=== PATIENT | female | born 1990 | race Caucasian/White ===

== ENCOUNTER 2021-04-16 00:19 | Emergency (ER) | payer SELFPAY ==
[~2021-04-16] VITALS: Ht 170.2 cm; Wt 95.7 kg
[2021-04-16 01:53] LABS: BASOPHILS ABSOLUTE AUTO 0.08 K/mm3 (0.00-0.23); BASOPHILS PERCENT AUTO 1 % (0-2); EOSINOPHILS ABSOLUTE AUTO 0.31 K/mm3 (0.00-0.68); EOSINOPHILS PERCENT AUTO 3 % (0-6); Hematocrit 28.1 % (33.0-51.0); Hemoglobin 8.3 g/dL (11.5-16.0); IMMATURE GRAN ABSOLUTE AUTO 0.05 K/mm3 (0.00-0.10); IMMATURE GRAN PERCENT AUTO 1 % (0-1); LYMPHOCYTES ABSOLUTE AUTO 2.17 K/mm3 (0.84-5.20); LYMPHOCYTES PERCENT AUTO 20 % (21-46); MONOCYTES ABSOLUTE AUTO 0.46 K/mm3 (0.16-1.47); MONOCYTES PERCENT AUTO 4 % (4-13); Mean Corpuscular HGB 23.1 pg (26.0-34.0); Mean Corpuscular HGB Conc 29.5 g/dL (31.5-36.5); Mean Corpuscular Volume 78 fL (80-100); NEUTROPHILS ABSOLUTE AUTO 7.79 K/mm3 (1.96-9.15); NEUTROPHILS PERCENT AUTO 72 % (41-73); RDW Coefficient Variation 16.4 % (11.7-14.2); RDW Standard Deviation 46.6 fL (35.1-46.3); Red Blood Cell Count 3.59 M/mm3 (3.80-5.20); White Blood Cell Count 10.86 K/mm3 (4.00-11.30)
[2021-04-16 01:55] LABS: Mean Platelet Volume 10.6 fL (9.1-12.4); Platelet Count 277 K/mm3 (150-400)
[2021-04-16 02:05] LABS: Magnesium, Blood 1.7 mg/dL (1.6-2.4)
[2021-04-16 02:23] LABS: Source, Urine Clean Catch
[2021-04-16 02:24] LABS: Alanine Aminotransfer (ALT/SGP 9 U/L (12-78); Albumin, Blood 2.5 g/dL (3.4-5.0); Albumin/Globulin Ratio 0.7 (0.8-1.8); Alk Phos 109 U/L (50-136); Anion Gap 9 mmol/L (6-16); Aspartate Aminotrans (AST/SGOT 13 U/L (12-37); Beta HCG, Quantitative, Serum 14509 mIU/mL (0-3); Bilirubin, Total 0.2 mg/dL (0.1-1.0); Blood Urea Nitrogen 7 mg/dL (8-24); Bun/Creatinine Ratio 16.4 (12.0-20.0); CO2, Blood 18 mmol/L (21-32); Calcium, Blood 7.5 mg/dL (8.5-10.1); Chloride, Blood 109 mmol/L (98-108); Creatinine, Blood 0.43 mg/dL (0.40-1.00); Globulin, Blood 3.8 g/dL (2.2-4.0); Glomerular Filtration Rate >60 (60-); Glucose, Blood 95 mg/dL (70-99); Potassium, Blood 2.9 mmol/L (3.5-5.5); Sodium, Blood 136 mmol/L (136-145); Total Protein, Blood 6.3 g/dL (6.4-8.2)
[2021-04-16 02:26] LABS: Bilirubin, Urine Neg (Neg); Blood, Urine Neg (Neg); Glucose Qualitative, Urine Neg (Neg); Ketones, Urine 2+ (Neg); Leukocyte Esterase, Urine 3+ (Neg); Nitrite, Urine Neg (Neg); Protein, Urine Neg (Neg); Urobilinogen, Urine NORM (Normal)
[2021-04-16 02:47] LABS: Appearance, Urine Hazy (Clear); Color, Urine Yellow (P-Yellow)
[2021-04-16 02:48] LABS: Amorphous Light (0-Heavy); Bacteria Mod /hpf; Red Blood Cells, Urine Not Seen /hpf (0-2); Squamous Epithelial Cells Mod /hpf (Few); Transitional Epithelial Cells Few /hpf (0-Rare)
[2021-04-16] MEDS ORDERED: ACETAMINOPHEN500 MG PO (04:54)
[2021-04-16] MEDS ORDERED: MULVITA PO (04:56)
== END 2021-04-16 05:49 | disposition home or self-care (01) ==
LOC: ER 00:19
PROVIDERS: Emergency Medicine
DX: O34.82 Maternal care for other abnormalities of pelvic organs, second trimester (principal); N83.201 Unspecified ovarian cyst, right side; Z3A.20 20 weeks gestation of pregnancy
CPT/HCPCS: 76700; 76816; 76817; 80053; 81001; 83690; 83735; 84702; 85025; 86900; 86901; 87077; 87086; 87186; 99284-25; A9270

== ENCOUNTER 2021-07-13 22:47 | Inpatient (IN) | payer OTHER ==
[~2021-07-13] VITALS: Ht 170.2 cm; Wt 95.5 kg
[~2021-07-13 22:47] MED LIST: ACETAMINOPHEN500 MG PO; BUPRENORPHIN-N1 EAC1 SL; MULVITA PO; NITR100CA PO; PRENATAL TABLE1 EAC2 PO
[2021-07-14 00:31] LABS: BASOPHILS ABSOLUTE AUTO 0.04 K/mm3 (0.00-0.23); BASOPHILS PERCENT AUTO 0 % (0-2); EOSINOPHILS ABSOLUTE AUTO 0.05 K/mm3 (0.00-0.68); EOSINOPHILS PERCENT AUTO 1 % (0-6); Hematocrit 27.9 % (33.0-51.0); Hemoglobin 8.2 g/dL (11.5-16.0); IMMATURE GRAN ABSOLUTE AUTO 0.17 K/mm3 (0.00-0.10); IMMATURE GRAN PERCENT AUTO 2 % (0-1); LYMPHOCYTES ABSOLUTE AUTO 1.96 K/mm3 (0.84-5.20); LYMPHOCYTES PERCENT AUTO 18 % (21-46); MONOCYTES ABSOLUTE AUTO 0.69 K/mm3 (0.16-1.47); MONOCYTES PERCENT AUTO 7 % (4-13); Mean Corpuscular HGB 20.9 pg (26.0-34.0); Mean Corpuscular HGB Conc 29.4 g/dL (31.5-36.5); Mean Corpuscular Volume 71 fL (80-100); NEUTROPHILS ABSOLUTE AUTO 7.77 K/mm3 (1.96-9.15); NEUTROPHILS PERCENT AUTO 73 % (41-73); NRBC ABSOLUTE 0.09 K/mm3 (0.00-0.02); NRBC Auto 0.8 /100 WBC (0.0-0.2); Platelet Count 211 K/mm3 (150-400); RDW Coefficient Variation 21.2 % (11.7-14.2); RDW Standard Deviation 46.7 fL (35.1-46.3); Red Blood Cell Count 3.93 M/mm3 (3.80-5.20); White Blood Cell Count 10.68 K/mm3 (4.00-11.30)
[2021-07-14 00:32] LABS: Mean Platelet Volume 10.8 fL (9.1-12.4)
[2021-07-14 00:47] LABS: Alanine Aminotransfer (ALT/SGP 24 U/L (12-78); Albumin, Blood 2.2 g/dL (3.4-5.0); Albumin/Globulin Ratio 0.6 (0.8-1.8); Alk Phos 164 U/L (50-136); Anion Gap 6 mmol/L (6-16); Aspartate Aminotrans (AST/SGOT 37 U/L (12-37); Bilirubin, Total 0.5 mg/dL (0.1-1.0); Blood Urea Nitrogen 12 mg/dL (8-24); Bun/Creatinine Ratio 18.4 (12.0-20.0); CO2, Blood 26 mmol/L (21-32); Calcium, Blood 8.3 mg/dL (8.5-10.1); Chloride, Blood 108 mmol/L (98-108); Creatinine, Blood 0.65 mg/dL (0.40-1.00); Globulin, Blood 3.8 g/dL (2.2-4.0); Glomerular Filtration Rate >60 (60-); Glucose, Blood 72 mg/dL (70-99); Potassium, Blood 3.8 mmol/L (3.5-5.5); Sodium, Blood 140 mmol/L (136-145)
--- NOTE | 2021-07-14 11:15 | NUR ---
Dr. Arcos in to see pt, no new orders received, pt still resting lateral position.
--- NOTE | 2021-07-14 12:14 | NUR ---
Pt sleeping right lateral, awakens easily to RN voice. Denies needs at this time.
--- NOTE | 2021-07-14 12:20 | NUR ---
Dr. Patel in room assessing pt, speaking to her about medical and family medical history. New orders received.
--- NOTE | 2021-07-14 13:30 | NUR ---
ECHO IN ROOM
--- NOTE | 2021-07-14 13:30 | NUR ---
Child Welfare concern: pt's mother, Wendy Ramirez, called and asked to speak to charge nurse. I then spoke with Wendy regarding her concerns she had discussed w/clinic charge nurse. She stated that she was currently in the hotel room where Eliz had been living with her 3 other children. Mother is concerned that Eliz is possibly "snorting" her suboxone. She states that there appears to be only cocacola for the children to drink and very little food. The mother thinks that the children have not been seen by a doctor nor had their vaccinations. She informed this RN that she was going to be notifying child welfare of these conditions and her concerns. She states she has called child welfare in the past and that Eliz has "run" with the children each time. Wendy is curious about how long Eliz will be in hospital. RN spoke with attending riveting machine operator tape control, who was at [facility] nurse's station, Dr. joshi believes Eliz will remain in patient at least overnight r/t cardiac concerns.
[2021-07-14 14:29] LABS: Magnesium, Blood 2.3 mg/dL (1.6-2.4); Thyroid Stimulating Hormone 1.23 uIU/mL (0.360-4.800)
--- NOTE | 2021-07-14 15:41 | NUR ---
Pt reports 7/10 pain now, tearful and writhing in bed. Declines pain medications offered. Pt reports unable to void yet, will call. Informed pt I will notify MD of increasing, continuing pain.
[2021-07-14 16:13] LABS: Source, Urine Clean Catch
--- NOTE | 2021-07-14 16:28 | NUR ---
Dr. Jorge gutierrez with pt taking iron infusion per Dr. Arcos.
[2021-07-14 16:38] LABS: Appearance, Urine Clear (Clear); Bilirubin, Urine Neg (Neg); Blood, Urine 1+ (Neg); Color, Urine Amber (P-Yellow); Glucose Qualitative, Urine Neg (Neg); Ketones, Urine Neg (Neg); Leukocyte Esterase, Urine Neg (Neg); Nitrite, Urine Neg (Neg); Protein, Urine 3+ (Neg); Urobilinogen, Urine 2+ (Normal)
--- NOTE | 2021-07-14 16:51 | NUR ---
Dr. perera updated about pt increasing pain and that she has finally agreed to take half of her ordered bupenorphine dose. Dr. Perera would like updated if pain still increased after additional half dose of bupenorphine.
[2021-07-14 16:52] LABS: Bacteria Mod /hpf; Mucus Light (0-Heavy); Squamous Epithelial Cells Mod /hpf (Few); White Blood Cells, Urine 0-2 /hpf (0-5)
--- NOTE | 2021-07-14 19:31 | NUR ---
Dr. Soto updated about UA results, no new orders received.
--- NOTE | 2021-07-15 07:30 | NUR ---
Dr. Patel in room to discuss pt's exam results, pt very short with her. Dr. Patel explains she is just trying to explain her results and
[2021-07-15 09:04] LABS: Alanine Aminotransfer (ALT/SGP 45 U/L (12-78); Albumin, Blood 2.4 g/dL (3.4-5.0); Albumin/Globulin Ratio 0.6 (0.8-1.8); Alk Phos 176 U/L (50-136); Anion Gap 4 mmol/L (6-16); Aspartate Aminotrans (AST/SGOT 94 U/L (12-37); Bilirubin, Total 0.9 mg/dL (0.1-1.0); Blood Urea Nitrogen 10 mg/dL (8-24); Bun/Creatinine Ratio 13.7 (12.0-20.0); CO2, Blood 26 mmol/L (21-32); Calcium, Blood 8.4 mg/dL (8.5-10.1); Chloride, Blood 107 mmol/L (98-108); Creatinine, Blood 0.73 mg/dL (0.40-1.00); Globulin, Blood 3.9 g/dL (2.2-4.0); Glomerular Filtration Rate >60 (60-); Glucose, Blood 89 mg/dL (70-99); Magnesium, Blood 2.4 mg/dL (1.6-2.4); Sodium, Blood 137 mmol/L (136-145); Total Protein, Blood 6.3 g/dL (6.4-8.2)
--- NOTE | 2021-07-15 09:35 | NUR ---
Child welfare enrollment representative here to speak with Eliz regarding other children.
--- NOTE | 2021-07-15 10:15 | NUR ---
Kilo Hu, [facility] primary care sales representative, reports there are currently no restrictions on pt, will get back to staff with further plan and follow up.
--- NOTE | 2021-07-15 12:00 | NUR ---
Kilo Hu returned to speak to pt about plan with other children, pt sleeping, he did not wake her. Informed staff he will return after with more exact plan.
--- NOTE | 2021-07-15 13:21 | NUR ---
Pt sleeping soundly, did not wake when RN entered room
--- NOTE | 2021-07-15 14:38 | NUR ---
Pt up in shower, c/o increased nausea and pain. Zofran given ODT per pt request while up in shower.
--- NOTE | 2021-07-15 18:43 | NUR ---
Pt reports relief w/supervisor fabrication and assembly so far. Reactive fhr tracing.
[2021-07-16 02:11] LABS: Protein, Urine Random 163.4 mg/dL (0.0-11.9); Protein/Creat Ratio, Ur Random 1.5
[2021-07-16 05:53] LABS: BASOPHILS ABSOLUTE AUTO 0.07 K/mm3 (0.00-0.23); BASOPHILS PERCENT AUTO 1 % (0-2); EOSINOPHILS ABSOLUTE AUTO 0.44 K/mm3 (0.00-0.68); EOSINOPHILS PERCENT AUTO 4 % (0-6); Hematocrit 28.3 % (33.0-51.0); Hemoglobin 8.5 g/dL (11.5-16.0); IMMATURE GRAN ABSOLUTE AUTO 0.33 K/mm3 (0.00-0.10); IMMATURE GRAN PERCENT AUTO 3 % (0-1); LYMPHOCYTES ABSOLUTE AUTO 1.34 K/mm3 (0.84-5.20); LYMPHOCYTES PERCENT AUTO 13 % (21-46); MONOCYTES PERCENT AUTO 5 % (4-13); Mean Corpuscular HGB 21.8 pg (26.0-34.0); Mean Corpuscular Volume 73 fL (80-100); NEUTROPHILS ABSOLUTE AUTO 7.44 K/mm3 (1.96-9.15); NEUTROPHILS PERCENT AUTO 74 % (41-73); NRBC ABSOLUTE 0.15 K/mm3 (0.00-0.02); NRBC Auto 1.5 /100 WBC (0.0-0.2); Platelet Count 107 K/mm3 (150-400); RDW Coefficient Variation 24.1 % (11.7-14.2); RDW Standard Deviation 47.8 fL (35.1-46.3); White Blood Cell Count 10.12 K/mm3 (4.00-11.30)
[2021-07-16 05:54] LABS: Mean Platelet Volume 10.7 fL (9.1-12.4)
[2021-07-16 06:15] LABS: Alanine Aminotransfer (ALT/SGP 42 U/L (12-78); Albumin/Globulin Ratio 0.5 (0.8-1.8); Alk Phos 185 U/L (50-136); Anion Gap 7 mmol/L (6-16); Aspartate Aminotrans (AST/SGOT 61 U/L (12-37); Blood Urea Nitrogen 7 mg/dL (8-24); Bun/Creatinine Ratio 9.2 (12.0-20.0); CO2, Blood 26 mmol/L (21-32); Calcium, Blood 8.6 mg/dL (8.5-10.1); Chloride, Blood 104 mmol/L (98-108); Creatinine, Blood 0.76 mg/dL (0.40-1.00); Globulin, Blood 3.7 g/dL (2.2-4.0); Glomerular Filtration Rate >60 (60-); Glucose, Blood 75 mg/dL (70-99); Potassium, Blood 4.3 mmol/L (3.5-5.5); Sodium, Blood 137 mmol/L (136-145); Total Protein, Blood 5.7 g/dL (6.4-8.2)
[2021-07-16 09:41] LABS: SARS-Cov-2 (COVID-19) PCR, MMC NEGATIVE (NEGATIVE)
--- NOTE | 2021-07-16 09:50 | NUR ---
REPT TO [facility] AT [facility]
== END 2021-07-16 11:05 | disposition short-term general hospital (02) | DRG 818 ==
LOC: BC 22:47 → OBS 22:47 → BC 22:48 → OBS 22:48 → BC 22:48 → OBS 07-15 18:48 → BC 07-15 19:45
PROVIDERS: Family Medicine; Internal Medicine; Obstetrics & Gynecology; ADMIT Obstetrics & Gynecology
PROC: 0UT9FZZ Resection of Uterus, Via Natural or Artificial Opening With Percutaneous Endoscopic Assistance (ICD-10-PCS; principal; 2021-07-15)
PROC: 0UB24ZZ Excision of Bilateral Ovaries, Percutaneous Endoscopic Approach (ICD-10-PCS; 2021-07-15)
PROC: 0UB74ZZ Excision of Bilateral Fallopian Tubes, Percutaneous Endoscopic Approach (ICD-10-PCS; 2021-07-15)
PROC: 8E0W4CZ Robotic Assisted Procedure of Trunk Region, Percutaneous Endoscopic Approach (ICD-10-PCS; 2021-07-15)
DX: O34.83 Maternal care for other abnormalities of pelvic organs, third trimester (principal); O23.43 Unspecified infection of urinary tract in pregnancy, third trimester; O99.323 Drug use complicating pregnancy, third trimester; F11.20 Opioid dependence, uncomplicated; O16.3 Unspecified maternal hypertension, third trimester; O44.03 Complete placenta previa NOS or without hemorrhage, third trimester; N39.0 Urinary tract infection, site not specified; N80.3 Endometriosis of pelvic peritoneum; Z59.811 Housing instability, housed, with risk of homelessness; Z20.822 Contact with and (suspected) exposure to COVID-19; N83.291 Other ovarian cyst, right side; Z3A.35 35 weeks gestation of pregnancy; O99.013 Anemia complicating pregnancy, third trimester; D50.9 Iron deficiency anemia, unspecified; O99.891 Other specified diseases and conditions complicating pregnancy; R00.1 Bradycardia, unspecified; O99.283 Endocrine, nutritional and metabolic diseases complicating pregnancy, third trimester; E87.6 Hypokalemia; O99.333 Smoking (tobacco) complicating pregnancy, third trimester; F17.210 Nicotine dependence, cigarettes, uncomplicated; O99.213 Obesity complicating pregnancy, third trimester; Z67.40 Type O blood, Rh positive
CPT/HCPCS: 36415; 59025; 76700; 76815; 80053; 81001; 81003; 82570; 83690; 83735; 84156; 84443; 85025; 86304; 87086; 93005; 93010; 93306; 96365; 96366; 96375; A9270; G0378; J1200; J2270; J2405; J2916; J3010; J3475; J7120; U0004

== ENCOUNTER 2021-08-04 11:36 | Emergency (ER) | payer OTHER ==
[~2021-08-04] VITALS: Ht 170.2 cm; Wt 83.9 kg
[2021-08-04] MEDS ORDERED: BUPRENORPHIN-N1 EAC1 SL (12:42)
== END 2021-08-04 13:06 | disposition home or self-care (01) ==
LOC: ER 11:36
DX: Z76.0 Encounter for issue of repeat prescription (principal); Z79.899 Other long term (current) drug therapy
CPT/HCPCS: 99281; A9270